=== PATIENT | female | born 1985 | race Caucasian/White ===

== ENCOUNTER 2023-06-29 14:42 | Observation (INO) | payer OTHER ==
[2023-06-29] MEDS: NIFEdipine 10 MG Cap PO ONE (14:52)
[2023-06-29 15:50] LABS: APPEARANCE,URINE CLEAR; BILIRUBIN,URINE NEGATIVE (NEGATIVE); COLOR,URINE YELLOW; GLUCOSE,URINE NEGATIVE (NEGATIVE); KETONES,URINE NEGATIVE (NEGATIVE); LEUKOCYTE ESTERASE,URINE NEGATIVE (NEGATIVE); NITRITE,URINE NEGATIVE (NEGATIVE); OCCULT BLOOD,URINE NEGATIVE (NEGATIVE); PROTEIN,URINE >=300 mg/dL (NEGATIVE); UROBILINOGEN,URINE 0.2 EU/dL (<2.0)
[2023-06-29 16:09] LABS: CREATININE,URINE RAND 231.9 mg/dL
[2023-06-29 16:33] LABS: PROTEIN CREATININE RATIO,URINE 3.3; PROTEIN,URINE RANDOM 756.1 mg/dL (<11.9)
[2023-06-29] MEDS ORDERED: Water For Irrigation,Sterile 1,000 ML Container IRR PRN (18:16)
[2023-06-29] MEDS ORDERED: Butorphanol 2 MG/ML SDV IVPUSH PRN (18:16)
[2023-06-29] MEDS ORDERED: Methylergonovine 0.2 MG/1 ML Amp IM PRN (18:16)
[2023-06-29] MEDS ORDERED: Sodium Chloride 0.9% 20 ML SDV IV PRN ×2 (18:16→18:18)
[2023-06-29] MEDS ORDERED: Sodium Chloride 0.9% 10 ML Syringe FLUSH PRN ×2 (18:16→18:18)
[2023-06-29] MEDS ORDERED: Misoprostol 200 MCG Tab PO PRN (18:16)
[2023-06-29] MEDS ORDERED: Carboprost Tromethamine 250 MCG/1 mL Vial IM PRN (18:16)
[2023-06-29] MEDS ORDERED: Sodium Chloride 0.9% 2.5 ML Syringe FLUSH PRN ×2 (18:16→18:18)
[2023-06-29] MEDS ORDERED: Tranexamic Acid IN NACL,ISO-OS 1,000 MG in Premix Bag 1 BAG IV PRN (18:16)
[2023-06-29] MEDS ORDERED: Calcium Gluconate 10% 1 GM/10 ML SDV IV PRN (18:18)
[2023-06-29] MEDS: Magnesium Sulfate/Water 4 GM in Premix Bag 1 BAG IV ONE (19:07)
[2023-06-29] MEDS: Lactated Ringers 1,000 ML IV SCH (19:07)
[2023-06-29] MEDS: Magnesium Sulfate/Water 20 GM/500 ML BAG IV SCH (19:11)
[2023-06-29 19:12] LABS: HEMATOCRIT 41.9 % (37.0-47.0); HEMOGLOBIN 14.7 g/dL (12.0-16.0); MEAN CORPUSCULAR HEMOGLOBIN 32.2 pg (28.0-32.0); MEAN CORPUSCULAR HGB CONC 35.1 g/dL (32.0-36.0); MEAN CORPUSCULAR VOLUME 91.9 fL (83.0-99.0); MEAN PLATELET VOLUME 10.6 fL (9.4-12.3); PLATELET COUNT,PLT 301 K/uL (150-400); RED BLOOD CELL COUNT 4.56 M/uL (4.10-5.30); WHITE BLOOD CELL COUNT,WBC 9.98 K/uL (3.9-11.3)
[2023-06-29] MEDS: NIFEdipine 30 MG Tab.ER PO ONE (19:15)
[2023-06-29 19:41] LABS: A/G RATIO 0.4 (0.9-1.6); ALBUMIN 1.8 g/dL (3.4-5.0); BILIRUBIN TOTAL 0.3 mg/dL (0.2-1.0); CALCIUM 9.1 mg/dL (8.5-10.1); CARBON DIOXIDE,CO2 22.2 mmol/L (21.0-32.0); CREATININE 0.9 mg/dL (0.6-1.0); EST CRCL DRUG DOSING (CG) 73.9 mL/min; POTASSIUM,K 4.1 mmol/L (3.5-5.1); PROTEIN TOTAL,TP 6.3 g/dL (6.4-8.2)
[2023-06-29] MEDS: Acetaminophen 325 MG Tab PO ONE (19:48)
[2023-06-29] MEDS: Labetalol 100 MG Tab PO ONE (22:32)
[2023-06-29] MEDS: Betamethasone Acetate/Betamethasone Sod Phosphate 6 MG/1 ML MDV IM ONE (22:46)
[2023-06-30] MEDS: Labetalol 100 MG Tab PO SCH (09:55)
[2023-06-30 10:04] LABS: APPEARANCE,URINE CLEAR; BILIRUBIN,URINE NEGATIVE (NEGATIVE); COLOR,URINE YELLOW; GLUCOSE,URINE NEGATIVE (NEGATIVE); KETONES,URINE NEGATIVE (NEGATIVE); LEUKOCYTE ESTERASE,URINE NEGATIVE (NEGATIVE); NITRITE,URINE NEGATIVE (NEGATIVE); OCCULT BLOOD,URINE MODERATE (NEGATIVE); PROTEIN,URINE 100 mg/dL (NEGATIVE); UROBILINOGEN,URINE 0.2 EU/dL (<2.0)
[2023-06-30 10:49] LABS: CREATININE,URINE RAND 110.1 mg/dL
[2023-06-30 10:55] LABS: A/G RATIO 0.4 (0.9-1.6); ALBUMIN 1.8 g/dL (3.4-5.0); BILIRUBIN TOTAL 0.4 mg/dL (0.2-1.0); CARBON DIOXIDE,CO2 17.1 mmol/L (21.0-32.0); CREATININE 0.9 mg/dL (0.6-1.0); EST CRCL DRUG DOSING (CG) 73.9 mL/min; POTASSIUM,K 4.4 mmol/L (3.5-5.1); PROTEIN TOTAL,TP 6.2 g/dL (6.4-8.2); URIC ACID 7.1 mg/dL (2.6-7.2)
[2023-06-30 10:56] LABS: PROTEIN CREATININE RATIO,URINE 2.9; PROTEIN,URINE RANDOM 324.6 mg/dL (<11.9)
[2023-06-30] MEDS: Sodium Chloride 0.9% 1,000 ML IV SCH (11:34)
[2023-06-30 12:58] LABS: HEMATOCRIT 38.7 % (37.0-47.0); MEAN CORPUSCULAR HEMOGLOBIN 32.3 pg (28.0-32.0); MEAN CORPUSCULAR HGB CONC 36.2 g/dL (32.0-36.0); MEAN CORPUSCULAR VOLUME 89.4 fL (83.0-99.0); MEAN PLATELET VOLUME 11.3 fL (9.4-12.3); PLATELET COUNT,PLT 321 K/uL (150-400); RED BLOOD CELL COUNT 4.33 M/uL (4.10-5.30); WHITE BLOOD CELL COUNT,WBC 10.39 K/uL (3.9-11.3)
[2023-06-30] MEDS ORDERED: Acetaminophen 500 MG Tab ONE (13:19)
[2023-06-30] MEDS: Acetaminophen 500 MG Tab PO ONE (13:22)
[2023-06-30 18:36] LABS: GROUP B STREP BY PCR POSITIVE (NEGATIVE)
[2023-06-30] MEDS ORDERED: Betamethasone Acetate/Betamethasone Sod Phosphate 6 MG/1 ML MDV IM ONE (22:45)
== END 2023-06-30 14:06 | disposition home or self-care (01) ==
LOC: MW.OBCHECK 14:42 → MW.OB 14:44 → MW.OBCHECK 18:16 → MW.OB 18:16
PROVIDERS: ADMIT Obstetrics & Gynecology Obstetrics; ATTEND Obstetrics & Gynecology Obstetrics
DX: O14.13 Severe pre-eclampsia, third trimester (principal); O24.410 Gestational diabetes mellitus in pregnancy, diet controlled; O99.213 Obesity complicating pregnancy, third trimester; E66.01 Morbid (severe) obesity due to excess calories; O09.513 Supervision of elderly primigravida, third trimester; Z3A.32 32 weeks gestation of pregnancy
CPT/HCPCS: 36415; 51702; 59025; 76815; 80053; 81003; 82570; 82947; 83735; 84156; 84550; 85027; 87653; A9270; J0702; J3475; J7030; J7120; 96365; 96366; 96372; 96376; G0378

== ENCOUNTER 2023-07-04 19:39 | Inpatient (IN) | payer OTHER ==
[2023-07-04] MEDS ORDERED: Morphine PF 10 MG/10 ML SDV ONE (19:54)
[2023-07-04] MEDS ORDERED: fentaNYL 100 MCG/2 ML SDV ONE (19:54)
[2023-07-04] MEDS ORDERED: Sodium Chloride 0.9% 20 ML SDV IV PRN ×3 (19:55→21:40)
[2023-07-04] MEDS ORDERED: Lidocaine 1% 50 ML MDV INJECT PRN (19:55)
[2023-07-04] MEDS ORDERED: Sodium Chloride 0.9% 2.5 ML Syringe FLUSH PRN ×3 (19:55→21:40)
[2023-07-04] MEDS ORDERED: Water For Irrigation,Sterile 1,000 ML Container IRR PRN (19:55)
[2023-07-04] MEDS ORDERED: Sodium Chloride 0.9% 10 ML Syringe FLUSH PRN ×3 (19:55→21:40)
[2023-07-04] MEDS ORDERED: Tranexamic Acid IN NACL,ISO-OS 1,000 MG in Premix Bag 1 BAG IV PRN (19:55)
[2023-07-04] MEDS ORDERED: Methylergonovine 0.2 MG/1 ML Amp IM PRN (19:55)
[2023-07-04] MEDS ORDERED: Carboprost Tromethamine 250 MCG/1 mL Vial IM PRN (19:55)
[2023-07-04] MEDS ORDERED: Butorphanol 2 MG/ML SDV IVPUSH PRN (19:55)
[2023-07-04] MEDS ORDERED: Misoprostol 200 MCG Tab PO PRN (19:55)
[2023-07-04] MEDS ORDERED: ceFAZolin 1 GM Vial ONE (19:57)
[2023-07-04] MEDS ORDERED: Oxytocin 10 Units/1 ML SDV ONE ×2 (19:57→20:39)
[2023-07-04] MEDS ORDERED: dexmedeTOMIDine HCl 200 MCG/2 ML SDV ONE (19:57)
[2023-07-04] MEDS ORDERED: Phenylephrine HCl In 0.9% NaCl 1 MG/10 ML Syringe ONE (19:57)
[2023-07-04] MEDS ORDERED: Ondansetron 4 MG/2 ML SDV ONE (19:57)
[2023-07-04] MEDS ORDERED: Calcium Gluconate 10% 1 GM/10 ML SDV IV PRN ×2 (19:58→21:40)
[2023-07-04] MEDS ORDERED: Tranexamic Acid 1,000 MG/10 ML Vial ONE ×2 (19:58→20:45)
[2023-07-04] MEDS ORDERED: Oxytocin/0.9 % Sodium Chloride 30 UNIT/500 ML BAG IV SCH ×2 (20:00→21:45)
[2023-07-04] MEDS ORDERED: Lactated Ringers 1,000 ML IV SCH (20:00)
[2023-07-04] MEDS ORDERED: Magnesium Sulfate/Water 0 ML ONE (20:03)
[2023-07-04] MEDS ORDERED: Magnesium Sulfate/Water 100 ML ONE (20:03)
[2023-07-04] MEDS: NIFEdipine 10 MG Cap PO ONE (20:05)
[2023-07-04] MEDS ORDERED: Magnesium Sulfate/Water 20 GM/500 ML BAG ONE (20:12)
[2023-07-04] MEDS ORDERED: Magnesium Sulfate/Water 4 GM in Premix Bag 1 BAG IV ONE (20:15)
[2023-07-04] MEDS: Magnesium Sulfate/Water 20 GM/500 ML BAG IV SCH ×2 (20:28)
[2023-07-04 20:36] LABS: BASOPHILS ABSOLUTE AUTO 0.05 K/uL (0.00-0.20); BASOPHILS PERCENT AUTO 0.4 % (0.0-1.0); EOSINOPHILS ABSOLUTE AUTO 0.11 K/uL (0.00-0.45); EOSINOPHILS PERCENT AUTO 0.9 % (0.0-6.0); HEMATOCRIT 38.2 % (37.0-47.0); HEMOGLOBIN 13.5 g/dL (12.0-16.0); IMMATURE GRAN ABSOLUTE AUTO 0.04 K/uL (0.00-0.05); IMMATURE GRAN PERCENT AUTO 0.3 % (0.0-0.4); LYMPHOCYTES ABSOLUTE AUTO 2.73 K/uL (1.00-4.80); LYMPHOCYTES PERCENT AUTO 23.5 % (24.0-44.0); MEAN CORPUSCULAR HEMOGLOBIN 32.3 pg (28.0-32.0); MEAN CORPUSCULAR HGB CONC 35.3 g/dL (32.0-36.0); MEAN CORPUSCULAR VOLUME 91.4 fL (83.0-99.0); MONOCYTES ABSOLUTE AUTO 1.09 K/uL (0.00-0.80); MONOCYTES PERCENT AUTO 9.4 % (0.0-8.0); NEUTROPHILS ABSOLUTE AUTO 7.62 K/uL (1.80-7.70); NEUTROPHILS PERCENT AUTO 65.5 % (41.0-71.0); PLATELET COUNT,PLT 286 K/uL (150-400); RED BLOOD CELL COUNT 4.18 M/uL (4.10-5.30); WHITE BLOOD CELL COUNT,WBC 11.64 K/uL (3.9-11.3)
[2023-07-04 21:01] LABS: INR < 0.93 (0.86-1.11)
[2023-07-04 21:24] LABS: A/G RATIO 0.4 (0.9-1.6); ALANINE AMINOTRANSFERASE,ALT 14 IU/L (14-63); ALBUMIN 1.7 g/dL (3.4-5.0); ALKALINE PHOSPHATASE 110 U/L (46-116); ASPARTATE AMNIOTRANSFERASE,AST 25 IU/L (15-37); BILIRUBIN TOTAL 0.4 mg/dL (0.2-1.0); BLOOD UREA NITROGEN,BUN 17 mg/dL (7.0-18.0); CALCIUM 8.6 mg/dL (8.5-10.1); CARBON DIOXIDE,CO2 24.2 mmol/L (21.0-32.0); CHLORIDE,CL 102 mmol/L (98-107); CREATININE 0.9 mg/dL (0.6-1.0); GLUCOSE RANDOM 79 mg/dL (74-106); POTASSIUM,K 4.5 mmol/L (3.5-5.1); PROTEIN TOTAL,TP 5.9 g/dL (6.4-8.2); SODIUM,NA 134 mmol/L (136-145); URIC ACID 9.2 mg/dL (2.6-7.2)
[2023-07-04 21:25] LABS: ESTIMATED GFR 84 mL/min (>60)
[2023-07-04] MEDS ORDERED: Acetaminophen/oxyCODONE 325-5 MG Tab PO PRN ×2 (21:37→21:38)
[2023-07-04] MEDS ORDERED: Ondansetron 4 MG/2 ML SDV IVPUSH PRN ×3 (21:37→21:38)
[2023-07-04] MEDS ORDERED: Oxytocin 10 Units/1 ML SDV IM PRN (21:37)
[2023-07-04] MEDS ORDERED: Lanolin 100% Cream 7 GM Tube TOP PRN (21:37)
[2023-07-04] MEDS ORDERED: diphenhydrAMINE 50 MG/ML SDV IVPUSH PRN ×2 (21:37→21:38)
[2023-07-04] MEDS ORDERED: Misoprostol 200 MCG Tab RECTAL PRN (21:37)
[2023-07-04] MEDS ORDERED: Bisacodyl 10 MG Supp RECTAL PRN (21:37)
[2023-07-04] MEDS ORDERED: Naloxone 0.4 MG/ML SDV IVPUSH PRN (21:38)
[2023-07-04] MEDS ORDERED: ePHEDrine 50 MG/ML SDV IVPUSH PRN (21:38)
[2023-07-04] MEDS ORDERED: Morphine 2 MG/ML SYRINGE IVPUSH PRN (21:38)
[2023-07-04] MEDS ORDERED: HYDROmorphone 1 MG/ML Syringe IVPUSH PRN (21:38)
[2023-07-04] MEDS ORDERED: Albuterol 0.083% 2.5 MG/3 ML Neb Soln NEB PRN (21:38)
[2023-07-04] MEDS ORDERED: fentaNYL 50 MCG/ML SDV IVPUSH PRN (21:38)
[2023-07-04] MEDS ORDERED: droPERidol 5 MG/2 ML SDV IVPUSH PRN (21:38)
[2023-07-04] MEDS ORDERED: Metoclopramide 10 MG/2 ML SDV IVPUSH PRN (21:38)
[2023-07-04] MEDS ORDERED: fentaNYL 100 MCG/2 ML SDV IVPUSH PRN (21:38)
[2023-07-04] MEDS ORDERED: NIFEdipine 10 MG Cap PO PRN (21:40)
[2023-07-04 21:47] LABS: PH,UMBILICAL ARTERIAL 7.062 (7.18-7.38); PH,UMBILICAL VENOUS 7.077 (7.25-7.45)
[2023-07-05] MEDS: Acetaminophen 1,000 MG in Premix Bag 1 BAG IV SCH (00:36)
[2023-07-05] MEDS: Labetalol 100 MG Tab PO SCH ×2 (02:53→13:55)
[2023-07-05] MEDS: Ketorolac 30 MG/ML SDV IVPUSH SCH (03:19)
[2023-07-05 05:38] LABS: HEMATOCRIT 36.1 % (37.0-47.0); HEMOGLOBIN 12.2 g/dL (12.0-16.0); MEAN CORPUSCULAR HEMOGLOBIN 31.4 pg (28.0-32.0); MEAN CORPUSCULAR HGB CONC 33.8 g/dL (32.0-36.0); MEAN CORPUSCULAR VOLUME 92.8 fL (83.0-99.0); MEAN PLATELET VOLUME 10.4 fL (9.4-12.3); PLATELET COUNT,PLT 251 K/uL (150-400); RED BLOOD CELL COUNT 3.89 M/uL (4.10-5.30); WHITE BLOOD CELL COUNT,WBC 14.49 K/uL (3.9-11.3)
[2023-07-05 06:00] LABS: A/G RATIO 0.4 (0.9-1.6); ALBUMIN 1.6 g/dL (3.4-5.0); BILIRUBIN TOTAL 0.8 mg/dL (0.2-1.0); CALCIUM 8.7 mg/dL (8.5-10.1); CARBON DIOXIDE,CO2 23.7 mmol/L (21.0-32.0); EST CRCL DRUG DOSING (CG) 66.51 mL/min; POTASSIUM,K 5.1 mmol/L (3.5-5.1); PROTEIN TOTAL,TP 5.3 g/dL (6.4-8.2)
[2023-07-05] MEDS: NIFEdipine 30 MG Tab.ER PO ONE (08:21)
[2023-07-05] MEDS: Docusate Sodium 100 MG Cap PO SCH (09:51)
[2023-07-05] MEDS ORDERED: Magnesium Sulfate/Water 20 GM/500 ML BAG IV SCH (12:45)
[2023-07-06] MEDS ORDERED: Calcium Chloride 10% 1 GM/10 ML Syringe ONE (06:58)
[2023-07-06] MEDS ORDERED: Ibuprofen 800 MG Tab PO PRN (09:00)
[2023-07-06] MEDS: NIFEdipine 30 MG Tab.ER PO SCH (09:02)
[2023-07-06] MEDS: Acetaminophen/oxyCODONE 325-5 MG Tab PO PRN (15:58)
== END 2023-07-06 16:04 | disposition home or self-care (01) | DRG 788 ==
LOC: MW.OBCHECK 19:39 → MW.OB 19:42 → OBSVTOIN 19:55 → MW.OB 19:55 → MW.OBCHECK 20:39 → MW.OB 07-05 01:25
PROVIDERS: ADMIT Obstetrics & Gynecology; ATTEND Obstetrics & Gynecology
PROC: 10D00Z1 Extraction of Products of Conception, Low, Open Approach (ICD-10-PCS; principal; 2023-07-04 20:17)
DX: O14.14 Severe pre-eclampsia complicating childbirth (principal); Z37.0 Single live birth; Z88.0 Allergy status to penicillin; O45.93 Premature separation of placenta, unspecified, third trimester; O99.214 Obesity complicating childbirth; O24.420 Gestational diabetes mellitus in childbirth, diet controlled; E66.01 Morbid (severe) obesity due to excess calories; Z90.89 Acquired absence of other organs; Z79.82 Long term (current) use of aspirin; Z3A.33 33 weeks gestation of pregnancy
CPT/HCPCS: 36415; 80053; 82803; 83735; 84550; 85025; 85027; 85384; 85610; 86592; 86850; 86900; 86901; 86920; A9270-GY; J0131; J0690; J1885; J2274; J2405; J2590; J3010; J3475; J3490